=== PATIENT | male | born 1990 | race Caucasian/White ===

== ENCOUNTER 2017-02-09 11:39 | Emergency (ER) | payer BC, OTHER ==
[~2017-02-09] VITALS: Ht 175.3 cm; Wt 88.9 kg
[~2017-02-09 11:39] MED LIST: DayQuil PO; IBUP-103 PO; MULT-506 PO
[2017-02-09 11:45] VITALS: TEMP 36.5; Ht 175.3 cm; Wt 88.9 kg
[2017-02-09] MEDS ORDERED: KETOROLAC TROMETHAMINE 60 MG/2 ML VIAL IM STA (12:18)
[2017-02-09] MEDS ORDERED: MoRPHine SULFATE 10 MG/ML CARP/VIAL IM STA (12:18)
[2017-02-09] MEDS ORDERED: TRAM-10 PO (12:26)
[2017-02-09] MEDS ORDERED: CYCL10TA6 PO (12:26)
[2017-02-09] MEDS ORDERED: ONDANSETRON 4MG OD TAB PO ONE (12:30)
[2017-02-09 12:41] VITALS: BP 135/89; PULSE 72; O2SAT 99
--- NOTE | 2017-02-09 16:09 | EMERGENCY ROOM VISIT NOTE ---
History First contact with patient: 11:50 Chief Complaint: BACK PAIN Stated Complaint: UPPER BACK PAIN WHEN MOVING OR DEEP BREATHES History of Present Illness The patient is a 26 year old male who presents to the Emergency Room with complaints of persistent middle and upper back pain. The patient reports that he was performing front rack holds while weightlifting . He experience sudden onset of discomfort in the central and upper back region. He reports that the pain has been intermittent, and got worse last night. The patient reports that his pain is worsened with movement of the right shoulder, and with deep breathing. He denies any chest pain or shortness of breath. He rates his discomfort a 10 out of 10. The patient did take Advil 400 mg last night for the pain. Review of Systems 10 system review was performed and was negative except for pertinent positives and negatives as indicated in history of present illness Past Medical/Surgical History Medical Problems: (1) No significant past medical history Surgical Problems: (1) No history of previous surgery Family History No significant family history Social History Smoking Status: Never Smoker Alcohol Use: occasionally Marital Status: single Housing Status: lives with family Occupation Status: employed Current/Historical Medications Scheduled PRN Cyclobenzaprine Hcl (Flexeril), 10 MG PO TID PRN for spasm Tramadol (Ultram), 1-2 TAB PO Q4H PRN for Pain Physical Exam Vital Signs Date Time Temp Pulse Resp B/P (MAP) Pulse Ox O2 Delivery O2 Flow Rate FiO2 02/09/17 12:41 72 16 135/89 99 02/09/17 11:45 36.5 67 18 133/84 99 Room Air Physical Exam CONSTITUTIONAL: Well-developed male, alert and oriented X 3 with positive affect. Patient appears in mild discomfort from pain. HEENT: Normocephalic, atraumatic. Pupils equal, round and reactive. NECK: Full active range of motion without discomfort. Patient has no focal tenderness to palpation of the cervical musculature or trapezius muscles. RESPIRATORY: Clear to auscultation bilaterally with no wheezing, crackles, rhonchi or stridor. CARDIOVASCULAR: Regular rate and rhythm with no murmurs, rubs or gallops. GASTROINTESTINAL: Bowel sounds present in all quadrants. Soft and nontender to palpation. MUSCULOSKELETAL: Examination shows tenderness to palpation of the right medial scapular border and scalene muscles. He has no focal tenderness through the central thoracolumbar spine. No palpable thoracic paraspinous spasm. He has no tenderness to palpation of the ribs. INTEGUMENTARY: No rash or other significant dermatologic conditions noted. NEUROLOGIC: No focal neurologic deficits noted. Medical Decision & Procedures ED Course Patient history and physical exam were performed. Nurse's notes were reviewed. Vital signs were reviewed and were normal. The patient was advised that his history and clinical exam findings are most consistent with a myofascial injury. The patient was encouraged to intermittently apply ice over the next few days, then moist heat as needed. He was encouraged alternate ibuprofen and Tylenol for baseline pain relief. He was provided prescriptions for Ultram and Flexeril as needed for additional relief. The patient reports that he does have a chiropractor that he will call for further reevaluation. He was instructed to return to the emergency department for any progressively worsening pain, chest pain, shortness of breath or other concerning symptoms. The patient was happy with plan of care, voice understanding of all discharge instructions, refused any analgesics while in the emergency department, and rated his discomfort a 7 out of 10 at the time of discharge. The patient did initially agree to having intramuscular injections of morphine and Toradol, however changed his mind after the medications were drawn. Medical Decision [place] Drug Monitoring Program Search Results: patient reviewed within database, no issues identified Medication Reconcilliation Current Medication List: was personally reviewed by me Blood Pressure Screening Patient's blood pressure: Normal blood pressure Impression Primary Impression: Acute thoracic myofascial strain Departure Information Dispostion Home / Self-Care Condition GOOD Prescriptions Tramadol (Ultram) 50 Mg Tab 1-2 TAB PO Q4H Y for Pain, #20 TAB For Initial Treatment Prov: Abelino Jansen PA 02/09/17 Cyclobenzaprine Hcl (FLEXERIL) 10 Mg Tab 10 MG PO TID Y for spasm, #15 TAB Prov: Abelino Jansen PA 02/09/17 Forms HOME CARE DOCUMENTATION FORM, IMPORTANT VISIT INFORMATION Patient Instructions My [facility] Additional Instructions Intermittently apply heat to area. Ibuprofen 800 mg and/or Tylenol 1000 mg every 8 hours. You may also alternate these medications for more effective pain relief: Ibuprofen --4 HRS--> Tylenol --4 HRS--> ibuprofen --4 HRS--> Tylenol .... Take Ultram as needed for additional breakthrough pain. Flexeril as needed for muscle spasms. Do not drink alcohol or drive while taking Flexeril. Avoid upper body workouts for now. Follow-up with your chiropractor as needed for further management. If symptoms are not improving within the next week, suggest follow-up with orthopedics for further reevaluation and management. Problem Qualifiers Primary Impression: Acute thoracic myofascial strain Encounter type: initial encounter Qualified Codes: S29.019A - Strain of muscle and tendon of unspecified wall of thorax, initial encounter
== END 2017-02-09 12:45 | disposition home or self-care (01) ==
LOC: C.EDB 11:40 → C.EDD 12:45
DX: S29.019A Strain of muscle and tendon of unspecified wall of thorax, initial encounter (principal); X50.0XXA Overexertion from strenuous movement or load, initial encounter; Y93.B3 Activity, free weights; Y99.8 Other external cause status